=== PATIENT | male | born 1990 | race Caucasian/White ===

== ENCOUNTER 2020-11-06 07:48 | Day surgery (SDC) | payer OTHER, SELFPAY ==
[~2020-11-06] VITALS: Ht 188 cm; Wt 167.8 kg
[2020-11-06] MEDS ORDERED: NS IRRIG SOLN 1000 ML IR ONE (10:12)
[2020-11-06] MEDS ORDERED: LR 1,000 ML IV.SOLN IV ONE (10:12)
[2020-11-06] MEDS ORDERED: SUCCINYLCHOLINE CHLORIDE 20 MG/ML(QUELICIN) IVP ONE (10:12)
[2020-11-06] MEDS ORDERED: SUGAMMADEX SODIUM 200 MG/2 ML VIAL IV ONE (10:12)
[2020-11-06] MEDS ORDERED: ROCURONIUM BROMIDE 10 MG/ML (ZEMURON) IV ONE (10:12)
[2020-11-06] MEDS ORDERED: PROPOFOL 200MG/ 20ML VIAL (DIPRIVAN) IV ONE (10:12)
[2020-11-06] MEDS ORDERED: DESFLURANE 15 MIN GAS INH ONE (10:12)
[2020-11-06] MEDS ORDERED: DEXAMETHASONE SOD PHOSPHATE 4 MG/ML VIAL IVP ONE (10:12)
[2020-11-06] MEDS ORDERED: fentaNYL CITRATE 250 MCG/5 ML AMP IV ONE (10:12)
[2020-11-06] MEDS ORDERED: ONDANSETRON HCL 4 MG/2 ML VIAL IVP ONE (10:12)
[2020-11-06] MEDS ORDERED: BUPIVACAINE /EPINEPHRINE/PF 0.25% 30 ML VIAL INJ ONE (10:12)
[2020-11-06] MEDS ORDERED: ACETAMINOPHEN I.V. 1000 MG 100 ML IV ONE (10:37)
[2020-11-06] MEDS ORDERED: HYDROmorphone 1 MG/ML INJ. CARTRIDGE IVP PRN ×2 (11:30)
[2020-11-06] MEDS ORDERED: ONDANSETRON HCL 4 MG/2 ML VIAL IVP PRN (11:30)
[2020-11-06] MEDS ORDERED: HYDROcodone/ACETAMIN 5-325 MG TAB (NORCO/ VICODIN) PO PRN ×2 (11:45)
[2020-11-06] MEDS ORDERED: ONDANSETRON 4 MG ODT TAB PO PRN (11:45)
[2020-11-06 13:37] VITALS: BP_SYST 116
== END 2020-11-06 13:15 | disposition home or self-care (01) ==
LOC: SDS 07:48 → SMU 07:48 → SDS 13:15
PROVIDERS: ATTEND Otolaryngology
DX: J35.01 Chronic tonsillitis (principal); J35.3 Hypertrophy of tonsils with hypertrophy of adenoids; Z20.822 Contact with and (suspected) exposure to COVID-19; Z79.899 Other long term (current) drug therapy
CPT/HCPCS: 42826; 88304; C9399; J0131; J0330; J1100; J2405; J2704; J3010; J3490; J7120; U0003; 88305